=== PATIENT | male | born 1965 | race Caucasian/White ===

== ENCOUNTER → 2017-10-21 10:55 | Outpatient (CLI) | payer OTHER, SELFPAY ==
--- NOTE | 2017-10-21 10:56 | RAD_ITS ---
STUDY: X-RAY - RIGHT FOOT CLINICAL: Male, 52 years old. Patient stepped in hole. TECHNIQUE: 3 view(s) of the foot. COMPARISON: None. FINDINGS: Normal talus, calcaneus, and tarsal bones. Normal visualized subtalar, talonavicular, calcaneocuboid, tarsal and tarsometatarsal articulations. Normal metatarsi. There is degenerative arthrosis of the metatarsophalangeal joint of the hallux . There are postoperative changes of the metatarsophalangeal joint of the great toe with a surgical pin. Normal tibial and fibular sesamoid bones. Normal interphalangeal joint of the great toe. There is no demonstrated acute fracture. Normal second through fifth metatarsophalangeal joints. Normal interphalangeal joints and phalanges of the lesser toes. The soft tissue structures are unremarkable. 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 No demonstrated acute osseous injury. Electronically Signed: Eligio Pope MD at 11:27 EST Tel , Service support ,
--- NOTE | 2017-10-21 10:56 | RAD_ITS ---
STUDY: X-RAY - RIGHT KNEE REASON FOR EXAM: Male, 52 years old. Twisted right knee, pain and swelling. TECHNIQUE: 4 view(s) of the knee. COMPARISON: None. FINDINGS: Normal visualized distal femur. There is a small sclerotic lesion in the proximal tibia probably due to bone island. Normal proximal tibiofibular articulation. There is no demonstrated fracture. Normal medial femorotibial compartment. Normal lateral femorotibial compartment. Normal patellofemoral articulation. There is a soft tissue prominence in the suprapatellar region suggesting a small volume joint effusion. There is a small degenerative spur of the superior aspect of the patella. The soft tissue structures are unremarkable. RAD/Knee 4 or More Views IMPRESSION: Small joint effusion. No demonstrated acute osseous injury. Electronically Signed: Eligio Pope MD at 11:29 EST Tel , Service support ,
== END ==
PROVIDERS: Visit Provider Physician Assistant
DX: M25.571 Pain in right ankle and joints of right foot (principal); M25.471 Effusion, right ankle; M25.561 Pain in right knee; M25.461 Effusion, right knee
CPT/HCPCS: 73564; 73630

== ENCOUNTER 2018-09-26 14:30 | Outpatient (RCR) | payer BC, SELFPAY ==
--- NOTE | 2018-09-19 08:22 | HP.OTEVAL ---
Patient's Visit Information KUSUM HERRERA is a 53 year old M, referred to Occupational Therapy by TIAGO MUKHERJEE, with a diagnosis of right unilateral primary osteoarthritis of 1st carpometacarpal joint. Date of Evaluation: 09/18/18 Occupational Therapist: Nisha Ingram, RELL/Mami, CHT - Subjective Subjective: This 53 year old male was seen for inital OT eval following a right CMC arthroplasty. Pt states pain started about 5 years ago. He states he tried multiple injections, but they stopped working and he deciced to have sx in May. and had sx on 08/02/18. pt works as a construction mtg, and has been working ever since. Order was writen on 09/13/18 for OT eval and tx following Dr. Mckeon post op protopcol. Pt would like to return to his PLOF with daily occupations. - Pain right hand 3 Pain Intensity Range: 0, 5, 6 - ROM Wrist: right 40/15 left 70/55 CMC: right 5 left 10 MP: right 25 left 55 IP: right 25 left 60 ROM Comments: pt demo with limited wrist ROM and thumb flex - Strength Manager Agency: right 30# left 85# Lateral Pinch: right NT left 19# Tripod Pinch: right NT left 14# - Sensation Sensation Comments: pt states numb over radial side of IP - Hand/Wrist Evaluation Total Score of Pain & Functional Sections: 56 - Goals Goal:100% adherence to protocol: Yes Comment: Dr. MCKEON post op protocol Goal:Daily scar massage when approriate: Yes Goal:ROM equal to unaffected hand: Yes Goal:Manager Agency/Pinch strength at least 75% of unaffected hand: Yes Goal:No pain with affected hand use: Yes Comment: with ADLs and IADLs Goal:Full use of affected hand in daily activities including: Yes - Rehabilitation General Assessment: PT is currently 6 weeks 4 days s/p following a right carpometacarpal arthroplasty, ligament reconstruction tendon interpostion, adduction contracture release, dequervain's release, partial trapezoid excision on 08/02/18. PT has not recived any therapy services to date. Pt demo with limited right wrist and thumb ROM, scar adhesions, and decrease in functional strength of right hand for use with daily occupations. Pt would benefit from skilled OT services 1-2x week for 3 weeks to ensure return of pts IND. with ADLs and IADLS. Today pt was ed. on AROM for wrist, thumb and digits. scar mtg and orhtosis use. Pt demo understanding and agrees to POC. Rehabilitation Potential: Excellent - Anticipated Interventions Anticipated Interventions: A/AAROM/PROM, Strengthening, Scar Care, Triggerpoint Release, Modalities, Orthoses, Joint Protection/Energy Conservation, Ergonomic Education - Visit Plan Frequency: 1-2x /Week Duration: 3 Weeks TEXT: Thank you for the opportunity to evaluate your patient. For Medicare and Medicare HMO plans, please review the plan of care and approve it. It will need to be FAXED BACK to us at [phone] for Medicare purposes. Please let me know if there are questions or concerns regarding this plan of care. Physician Signature: Date:
--- NOTE | 2018-12-05 14:12 | HP.OT.NRP ---
HP - Discharge Summary - Patient Information KUSUM HERRERA was seen in my office for initial evaluation on 09/18/18. The following Plan of Care was established for this patient: Initial Frequency: 1-2x /Week Initial Duration: 3 Weeks Plan: cont to challenge FMS. and PRE for exercise equipment specialist- no agressive pinch until 12 weeks- - Anticipated Interventions Anticipated Interventions: A/AAROM/PROM, Strengthening, Scar Care, Triggerpoint Release, Modalities, Orthoses, Joint Protection/Energy Conservation, Ergonomic Education This patient was last seen in our office 09/26/18. Pertinent comments regarding their Occupational therapy will appear below: PT seen for 2 OT visits, cancelled last apt and has not rescheduled, Pt D/c at this time. At this point I will be discontinuing this patient from occupational therapy. I would be happy to see this patient again in the future if found appropriate by the physician. Thank you! Nisha Ingram, OTR/L, CHT
== END 2018-09-26 19:00 | disposition home or self-care (01) ==
LOC: OT 14:30
DX: M18.11 Unilateral primary osteoarthritis of first carpometacarpal joint, right hand (principal)
CPT/HCPCS: 97110; 97140; 97166

== ENCOUNTER → 2019-03-17 15:32 | Outpatient (CLI) | payer BC, SELFPAY ==
--- NOTE | 2019-03-17 15:39 | RAD_ITS ---
STUDY: X-RAY CHEST REASON FOR EXAM: Male, 54 years old. Pain. TECHNIQUE: Frontal and lateral views of the chest. COMPARISON: None. FINDINGS: There is hyperinflation of the lungs consistent with chronic obstructive lung disease (COPD). No infiltrates. Minimal linear density across the lower left lung is most likely a small scar. No effusions. There is no demonstrated pleural abnormality. Normal size heart. Normal mediastinum and yeni. Normal visualized pulmonary arteries. Normal visualized aortic arch and descending thoracic aorta. Normal visualized thoracic spine. Normal visualized ribs, clavicles, and shoulders. There is no demonstrated abnormality of the visualized soft tissue structures of the upper abdomen. RAD/Chest PA and Lateral IMPRESSION: There are findings consistent with COPD. There is no evidence of acute chest disease. Electronically Signed: Raheem Aguilar MD at 16:27 EDT , Service support ,
== END ==
PROVIDERS: Family Provider Family Medicine; PCP Family Medicine
DX: R93.89 Abnormal findings on diagnostic imaging of other specified body structures (principal)
CPT/HCPCS: 71046

== ENCOUNTER → 2022-01-26 | Outpatient (CLI) | payer BC, SELFPAY ==
--- NOTE | 2022-01-26 10:15 | MRI_ITS ---
STUDY: MRI LEFT ANKLE WITHOUT CONTRAST REASON FOR EXAM: Left medial ankle pain for 5 years, tibial/fibular fracture 15 years ago, evaluate osteochondral lesion talar dome. TECHNIQUE: Standardized fat and water weighted pulse sequences were obtained in all 3 orthogonal planes. COMPARISON: CT images 06/24/2013. FINDINGS: There is micrometallic artifact at the peripheral aspect of the medial malleolus. Normal posterior tibialis tendon. Normal flexor digitorum longus tendon. Normal flexor hallucis longus tendon. Normal peroneus longus and brevis tendons. Normal tibialis anterior tendon. Normal extensor hallucis longus tendon. Normal extensor digitorum longus tendons. Normal Achilles tendon and teno-osseous insertion. Normal plantar fascia. Normal plantar calcaneal tubercles. Normal intrinsic muscles of the rearfoot. Normal distal tibiofibular syndesmotic ligamentous complex. Normal lateral ligamentous complex. Normal subtalar ligaments and sinus tarsi. Normal deltoid ligamentous complexes. Normal plantar calcaneonavicular (spring) ligament. There is an osteochondral lesion of the superior aspect of the medial talar dome (T1 sagittal images 7, 8) measuring 2.0 x 0.9 cm (AP x transverse) with cystic change/bone edema of the fragment (T1 sagittal images 7, 8) and mild subchondral collapse (inversion recovery sagittal image 7). There is healed fracture deformity with intramedullary scarring from previous ORIF of the distal fibula. Normal subtalar articulations. Normal talonavicular articulation. Normal calcaneocuboid articulation. There is mild subchondral bone edema/cystic change of the proximal cuboid at the calcaneocuboid articulation (inversion recovery sagittal image 11, 12). Normal navicular-cuneiform articulations. MRI/Lower Ext Joint Only (Routine) IMPRESSION: Osteochondral lesion of the medial talar dome. Mild subchondral bone edema/cystic change of the proximal cuboid at the calcaneocuboid articulation. Electronically Signed: Harry Leyva MD at 11:51 EDT ,
== END | disposition home or self-care (01) ==
PROVIDERS: PCP Family Medicine
DX: M89.8X7 Other specified disorders of bone, ankle and foot (principal); M94.9 Disorder of cartilage, unspecified
CPT/HCPCS: 73721

== ENCOUNTER → 2025-01-27 | Outpatient (CLI) | payer OTHER, SELFPAY ==
--- NOTE | 2025-01-27 12:04 | CT_ITS ---
PROCEDURE: LOW DOSE CT LUNG SCREENING 01/27/2025 REASON FOR EXAM: NICOTINE DPENDENCE Current smoker. 1 pack per day for 38 years TECHNIQUE: LOW DOSE CT LUNG SCREENING Coronal and Sagittal reconstruction series were provided. One or more dose reduction techniques were used (e.g., Automated exposure control, adjustment of the mA and/or kV according to patient size, use of iterative reconstruction technique). REFERENCE LINK: [email or web address] Lung-RADS RADIATION DOSE SUMMARY: CTDlvol: 3.02 mGy DLP: 110.23 mGycm COMPARISON: Prior study dated March 17, 2019. FINDINGS: PULMONARY NODULES: (Only nodules >3mm are reported) Nodules described below are on series 1 unless otherwise specified. Pulmonary Nodules: No suspicious pulmonary nodule seen. Hardware:None Lymph Nodes:Small benign-appearing mediastinal lymph nodes. Heart and Vasculature:Coronary artery calcifications are noted. Coronary Artery Calcifications: Present Lungs and Airways: Mild dependent atelectasis. Pleura:Unremarkable Upper Abdomen:Unremarkable Bones:Degenerative changes of the thoracic spine. CT/Low Dose CT Lung Screening IMPRESSION: No suspicious pulmonary nodule. Coronary artery calcification (CAC) is is present Lung-RADS Category: 2 BENIGN (BASED ON IMAGING FEATURES OR INDOLENT BEHAVIOR). RECOMMEND 12-MONTH SCREENING LDCT. Other Significant Findings: None. Reading Location: [place] [id number]
== END | disposition home or self-care (01) ==
PROVIDERS: PCP Family Medicine
DX: F17.200 Nicotine dependence, unspecified, uncomplicated (principal)
CPT/HCPCS: 71271